=== PATIENT | female | born 1980 | race Caucasian/White ===

== ENCOUNTER 2019-02-02 20:40 | Emergency (ER) | payer SELFPAY ==
[2019-02-02 21:27] LABS: Urine Blood TRACE (NEG); Urine Glucose NEGATIVE (NEG); Urine Protein NEGATIVE (NEG); Urine Specific Gravity >1.030 (1.005-1.030)
[2019-02-02 21:58] LABS: Barbiturates NEGATIVE (NEGATIVE); Benzodiazepines NEGATIVE (NEGATIVE); Cocaine NEGATIVE (NEGATIVE); METHAMPHETAM NEGATIVE (NEGATIVE); Methadone NEGATIVE (NEGATIVE); Opiates NEGATIVE (NEGATIVE); Phencyclidine NEGATIVE (NEGATIVE); THC Cannibis NEGATIVE (NEGATIVE)
[2019-02-02 22:11] LABS: Basophils % 1.1 % (0-1.3); Hematocrit 39.2 % (36.0-45.0); Lymphocytes % 39.3 % (15.3-44.8); MPV 8.9 fL (7.6-11.3); RBC Red Blood Cell Count 4.44 M/uL (3.86-4.86)
[2019-02-02 22:54] LABS: Protime INR 1.14
[2019-02-02 23:14] LABS: ALT/SGPT 20 U/L (12-78); AST/SGOT 13 U/L (15-37); Albumin 3.6 g/dL (3.4-5.0); Alkaline Phosphatase 65 U/L (45-117); BUN Blood Urea Nitrogen 11 mg/dL (7-18); Bicarbonate 29 mmol/L (21-32); Bilirubin Direct 0.1 mg/dL (0-0.2); Bilirubin Total 0.4 mg/dL (0.2-1.0); Glucose Level 108 mg/dL (74-106); Protein, Total 6.7 g/dL (6.4-8.2); Sodium Level 142 mmol/L (136-145)
[2019-02-02 23:17] LABS: Potassium 2.9 mmol/L (3.5-5.1)
[2019-02-02] MEDS ORDERED: POTASSIUM CL SA 10 MEQ TAB PO ONE (23:28)
--- NOTE | 2019-02-03 01:38 | EDPHYS ---
Physician Documentation [facility] Name: Isabela Love Age: 38 yrs Sex: Female : 1980 Arrival Date: 02/02/2019 Time: 20:44 Bed 17 Private MD: ED Physician Donovan Bunn HPI: 02/02 21:11 This 38 yrs old Female presents to ER via Ambulatory with complaints of jmm Hearing Voices. 21:11 The patient presents to the emergency department with psychosis, has experienced jmm auditory hallucinations. Onset: The symptoms/episode began/occurred gradually, 3 month(s) ago. Past psychiatric history: Prior diagnosis: bipolar disorder. This is a 38 year old female with a history of depression, bipolar that presents to the ED with complaints of auditory hallucinations. Patient denies suicidal ideation or homicidal ideation. Patient states voices are telling her she is going to kill herself and hurt others. . 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 - Social history:: Smoking status: Patient uses tobacco products, smokes one pack cigarettes per day. Patient uses alcohol, occasionally. Patient/guardian denies using street drugs, IV drugs, last use of drugs 2 months ago- meth. - Ebola Screening: : No symptoms or risks identified at this time. ROS: 21:11 Constitutional: Negative for fever, chills, and weight loss, Cardiovascular: Negative jmm for chest pain, palpitations, and edema, Respiratory: Negative for shortness of breath, cough, wheezing, and pleuritic chest pain. 21:11 Psych: Positive for anxiety, auditory hallucinations. 21:11 All other systems are negative. Exam: 21:11 Constitutional: This is a well developed, well nourished patient who is awake, alert, jmm and in no acute distress. Head/Face: atraumatic. Eyes: EOMI, no conjunctival erythema appreciated ENT: Moist Mucus Membranes Neck: Trachea midline, Supple Chest/axilla: Normal chest wall appearance and motion. Cardiovascular: Regular rate and rhythm. No edema appreciated Respiratory: Normal respirations, no respiratory distress appreciated Abdomen/GI: Non distended, soft Back: Normal ROM Skin: General appearance color normal MS/ Extremity: Moves all extremities, no obvious deformities appreciated, no edema noted to the lower extremities 21:11 Psych: Behavior/mood is cooperative, anxious. Vital Signs: 20:52 BP 121 / 85; Pulse 87; Resp 18; Temp 97.7; Pulse Ox 100% on R/A; Weight 63.5 kg; Height mg2 5 ft. 2 in. (157.48 cm); Pain 0/10; 23:00 BP 104 / 67; Pulse 72; Resp 18; Temp 98.2; Pulse Ox 83% ; cm6 20:52 Body Mass Index 25.61 (63.50 kg, 157.48 cm) mg2 MDM: 21:12 Patient medically screened. [facility] 02/03 01:34 Data reviewed: vital signs, nurses notes. Counseling: I had a detailed discussion with [facility] the patient and/or guardian regarding: the historical points, exam findings, and any diagnostic results supporting the discharge/admit diagnosis, lab results, the need for outpatient follow up, to return to the emergency department if symptoms worsen or persist or if there are any questions or concerns that arise at home. ED course: Patient is a alert and non toxic in appearance in the ED. Psychiatric wire rope sales representative visited with the patient. Hallucinations appear to be predictive opposed to command. Patient agrees to follow up with [facility]. . 02/02 21:11 Order name: Acetaminophen; Complete Time: 23:19 [facility] 02/02 21:11 Order name: Basic Metabolic Panel; Complete Time: 23:19 [facility] 02/02 21:11 Order name: CBC with Diff; Complete Time: 23:19 [facility] 02/02 21:11 Order name: ETOH Level; Complete Time: 23:19 [facility] 02/02 21:11 Order name: Hepatic Function; Complete Time: 23:19 [facility] 02/02 21:11 Order name: PT-INR; Complete Time: 23:19 [facility] 02/02 21:11 Order name: Ptt, Activated; Complete Time: 23:19 [facility] 02/02 21:11 Order name: Salicylate; Complete Time: 23:26 [facility] 02/02 21:11 Order name: Urine Drug Screen; Complete Time: 22:05 [facility] 02/02 21:11 Order name: EKG; Complete Time: 21:12 [facility] 02/02 21:11 Order name: EKG - Nurse/Tech; Complete Time: 21:38 [facility] 02/02 21:24 Order name: Urine Dipstick--Ancillary (enter results); Complete Time: 21:39 [facility] 02/02 21:24 Order name: Urine --Ancillary (enter results); Complete Time: 21:39 [facility] 02/02 21:11 Order name: IV Saline Lock; Complete Time: 22:40 [facility] 02/02 21:11 Order name: Labs collected and sent; Complete Time: 22:40 [facility] 02/02 21:11 Order name: Urine Dipstick-Ancillary (obtain specimen); Complete Time: 21:38 [facility] Administered Medications: 02/02 23:20 Drug: Potassium Chloride 40 mEq Route: PO; cc3 23:34 Follow up: Response: No adverse reaction cc3 Disposition: 02/03 06:33 Co-signature as Attending Physician, Donovan Bunn MD Available for consultation at [facility] all times . Disposition: 02/03/19 01:37 Discharged to Home. Impression: Hallucinations, unspecified. - Condition is Stable. - Discharge Instructions: Schizophrenia. - Medication Reconciliation Form, Thank You Letter, Antibiotic Education, Prescription Opioid Use form. - Follow up: Private Physician; When: 2 - 3 days; Reason: Recheck today's complaints, Continuance of care, Re-evaluation by your physician. Signatures: Dispatcher [employer] EDMS Jamaal Alfonso PA PA jmm Singer, Phillip, MD MD ps1 Ttii Harrell RN RN mg2 Alyssia Salazar cc3 Corrections: (The following items were deleted from the chart) 01:54 01:37 02/03/2019 01:37 Discharged to Home. Impression: Hallucinations, unspecified. cc3 Condition is Stable. Forms are Medication Reconciliation Form, Thank You Letter, Antibiotic Education, Prescription Opioid Use. Follow up: Private Physician; When: 2 - 3 days; Reason: Recheck today's complaints, Continuance of care, Re-evaluation by your physician. [facility]
--- NOTE | 2019-02-03 01:38 | ER ---
Nurse's Notes [facility] Name: Isabela Love Age: 38 yrs Sex: Female : 1980 Arrival Date: 02/02/2019 Time: 20:44 Bed 17 Private MD: Diagnosis: Hallucinations, unspecified Presentation: 02/02 20:48 Presenting complaint: Patient states: ama been hearing voices calling me stupid and mg2 that i was trying to kill myself. i do have thoughts of killing myself now and i dont feel comfortable at home anymore. i live by myself. Transition of care: patient was not received from another setting of care. Onset of symptoms was February 02, 2019. Risk Assessment: Do you want to hurt yourself or someone else? Patient reports desire/thoughts of hurting themselves or someone else. Provider notified. Initial Sepsis Screen: Does the patient meet any 2 criteria? No. Patient's initial sepsis screen is negative. Does the patient have a suspected source of infection? No. Patient's initial sepsis screen is negative. Care prior to arrival: None. 20:48 Method Of Arrival: Ambulatory mg2 20:48 Acuity: TAMEKA 2 mg2 Triage Assessment: 21:02 General: Appears in no apparent distress. comfortable, Behavior is calm, cooperative, cc3 appropriate for age. 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 - Social history:: Smoking status: Patient uses tobacco products, smokes one pack cigarettes per day. Patient uses alcohol, occasionally. Patient/guardian denies using street drugs, IV drugs, last use of drugs 2 months ago- meth. - Ebola Screening: : No symptoms or risks identified at this time. Screenin:02 Abuse screen: Denies threats or abuse. Denies injuries from another. Nutritional cc3 screening: No deficits noted. Tuberculosis screening: No symptoms or risk factors identified. Fall Risk Ambulatory Aid- None/Bed Rest/Nurse Assist (0 pts). Gait- Normal/Bed Rest/Wheelchair (0 pts) Mental Status- Oriented to own ability (0 pts). Assessment: 21:02 General: Appears in no apparent distress. comfortable, Behavior is calm, cooperative, cc3 appropriate for age. Pain: Denies pain. Neuro: Level of Consciousness is awake, alert, obeys commands, Oriented to person, place, time, situation, Appropriate for age. Cardiovascular: Denies chest pain, Heart tones S1 S2 present Capillary refill < 3 seconds Patient's skin is warm and dry. Rhythm is sinus rhythm. Respiratory: Airway is patent Respiratory effort is even, unlabored, Respiratory pattern is regular, symmetrical, Breath sounds are clear bilaterally. GI: Abdomen is round non-distended. : No signs and/or symptoms were reported regarding the genitourinary system. EENT: No signs and/or symptoms were reported regarding the EENT system. Derm: Skin is intact, is healthy with good turgor, Skin is pink, warm \T\ dry. normal. Musculoskeletal: Circulation, motion, and sensation intact. Range of motion: intact in all extremities. 21:30 Reassessment: Patient's belongings taken by her sister. cc3 22:00 Reassessment: Patient appears in no apparent distress at this time. Patient and/or cc3 family updated on plan of care and expected duration. Pain level reassessed. Patient is alert, oriented x 3, equal unlabored respirations, skin warm/dry/pink. ED clerk Valdez said she received a call from laboratory and told her that all the lab works sent were hemolysed. Called lab at 1108 to do phlebotomy for repeat bloodworks and staff Melissa said she'll page someone to come over here and do it. Sitter present. 22:30 Reassessment: Called again laboratory at 1108 to follow up the flower shop laborer/designer because [facility] up to now she hasn't come yet and staff Melissa said she'll page her again. 22:40 Reassessment: CECILE Walls did phlebotomy for the patient and sent the blood samples to [facility] the laboratory. 23:16 Reassessment: Patient appears in no apparent distress at this time. Patient and/or cc3 family updated on plan of care and expected duration. Pain level reassessed. Patient is alert, oriented x 3, equal unlabored respirations, skin warm/dry/pink. Lab staff Melissa called and relayed critical potassium result of 2.9, PA Mickail informed. Sitter present. 02/03 00:20 Reassessment: Patient appears in no apparent distress at this time. Patient and/or cc3 family updated on plan of care and expected duration. Pain level reassessed. Patient is alert, oriented x 3, equal unlabored respirations, skin warm/dry/pink. sitter present. 01:00 Reassessment: Patient appears in no apparent distress at this time. Patient and/or cc3 family updated on plan of care and expected duration. Pain level reassessed. Patient is alert, oriented x 3, equal unlabored respirations, skin warm/dry/pink. [facility] union representative came at bedside. Sitter present. 01:20 Reassessment: [facility] union representative left the patient's room. cc3 01:45 Reassessment: Patient appears in no apparent distress at this time. Patient and/or cc3 family updated on plan of care and expected duration. Pain level reassessed. Patient is alert, oriented x 3, equal unlabored respirations, skin warm/dry/pink. GRICELDA Alfonso discharged the patient home, no prescription given. IV cannula removed and patient left ER vitally stable and ambulatory. No valuables left in the patient's room. Patient denies pain at this time. Patient states feeling better. Patient states symptoms have improved. Psych: 02/02 21:02 Subjective: Patient's mood is normal Delusions are denied, Hallucinations are auditory, cc3 Having thoughts of suicide. Denies suicidal plan. Objective: Patient is cooperative, Speech is normal, Affect is appropriate. Interventions: Removed personal items and placed in bag. Patient placed in hospital gown. Searched person for dangerous items. Urine collected and sent for urine drug test. Belonging list filled out. Suicide Risk Assessment: Sad Person Scale: Sex of patient: Female: Score 0 points. Age of patient: Score 0 point if patient falls outside of specified age parameters. Depression: Score 0 point if signs of depression are not present. Previous Attempt: Score 0 point if patient has not previously attempted suicide. Substance Abuse: Score 1 point if patient abuses alcohol or drugs. Rational Thinking: Score 0 point if patient has rational thinking. Social Support: Score 1 point if social support is lacking and/or unavailable. Organized Plan: Score 0 if patient did not have an organized plan in place. Relationship: Score 1 point if patient is , , , or for a single male Chronic Sickness: Score 0 point if patient does not have a chronic illness, debilitating, or severe disorder. TOTAL POINTS: If total points are 3-4, proposed clinical action is close follow-up/consider hospitalization. Safety Checks: Personal items have been removed. Door is open. No visitors are present at this time. sitter present. Patient uses methamphetamines Last use was 2 months ago. Commitment: Patient will be a voluntary commitment. Vital Signs: 20:52 BP 121 / 85; Pulse 87; Resp 18; Temp 97.7; Pulse Ox 100% on R/A; Weight 63.5 kg; Height mg2 5 ft. 2 in. (157.48 cm); Pain 0/10; 23:00 BP 104 / 67; Pulse 72; Resp 18; Temp 98.2; Pulse Ox 83% ; cm6 20:52 Body Mass Index 25.61 (63.50 kg, 157.48 cm) mg2 ED Course: 20:44 Patient arrived in ED. cf2 20:51 Triage completed. mg2 20:53 Arm band placed on. mg2 20:56 Jamaal Alfonso PA is PHCP. jmm 20:56 Donovan Bunn MD is Attending Physician. [facility] 21:00 Safety checks: Items removed: yes. Door open/sign placed on door: yes. Family/friend cm6 present: no. Sitter present: Yes. Safety checks:. 21:02 Alyssia Salazar is Primary Nurse. cc3 21:02 Patient has correct armband on for positive identification. Placed in gown. Bed in low cc3 position. Call light in reach. sitter present. 21:15 Safety checks: Items removed: yes. Door open/sign placed on door: yes. Family/friend cm6 present: no. Sitter present: Yes. 21:30 Safety checks: Items removed: yes. Door open/sign placed on door: yes. Family/friend cm6 present: no. Sitter present: Yes. 21:40 Inserted saline lock: 20 gauge in right antecubital area, using aseptic technique. cc3 Blood collected. inserted by dialysis tech Natalie. 21:45 Safety checks: Items removed: yes. Door open/sign placed on door: yes. Family/friend cm6 present: no. Sitter present: Yes. 22:00 Safety checks: Items removed: yes. Door open/sign placed on door: yes. Family/friend cm6 present: no. Sitter present: Yes. 22:15 Safety checks: Items removed: yes. Door open/sign placed on door: yes. Family/friend cm6 present: no. Sitter present: Yes. 22:30 Safety checks: Items removed: yes. Door open/sign placed on door: yes. Family/friend cm6 present: no. Sitter present: Yes. 22:40 Lab(s) recollected, by me, sent to lab. mg2 22:45 Safety checks: Items removed: yes. Door open/sign placed on door: yes. Family/friend cm6 present: no. Sitter present: Yes. 23:00 Safety checks: Items removed: yes. Door open/sign placed on door: yes. Family/friend cm6 present: no. Sitter present: Yes. 23:15 Safety checks: Items removed: yes. Door open/sign placed on door: yes. Family/friend cm6 present: no. Sitter present: Yes. 23:23 Called [facility] spoke to Chase about having a screener speak to pt. mw2 23:30 Safety checks: Items removed: yes. Door open/sign placed on door: yes. Family/friend cm6 present: no. Sitter present: Yes. 23:45 Safety checks: Items removed: yes. Door open/sign placed on door: yes. Family/friend cm6 present: no. Sitter present: Yes. 02/03 00:00 Safety checks: Items removed: yes. Door open/sign placed on door: yes. Family/friend cm6 present: no. Sitter present: Yes. 00:15 Safety checks: Items removed: yes. Door open/sign placed on door: yes. Family/friend cm6 present: no. Sitter present: Yes. 00:30 Safety checks: Items removed: yes. Door open/sign placed on door: yes. Family/friend cm6 present: no. Sitter present: Yes. 00:45 Safety checks: Items removed: yes. Door open/sign placed on door: yes. Family/friend cm6 present: no. Sitter present: Yes. 01:45 No provider procedures requiring assistance completed. IV discontinued, intact, cc3 bleeding controlled, No redness/swelling at site. Pressure dressing applied. Administered Medications: 02/02 23:20 Drug: Potassium Chloride 40 mEq Route: PO; cc3 23:34 Follow up: Response: No adverse reaction cc3 Outcome: 02/03 01:37 Discharge ordered by . elba 01:45 Discharged to home ambulatory. cc3 01:45 Condition: stable 01:45 Discharge instructions given to patient, Instructed on discharge instructions, follow up and referral plans. Demonstrated understanding of instructions, follow-up care. 01:54 Patient left the ED. cc3 Signatures: Jamaal Alfonso PA PA jmm [place], MyKena mw2 Titi Harrell RN RN mg2 Alyssia Salazar cc3 Natalie Mae cm6 Colby Bob cf2 Corrections: (The following items were deleted from the chart) 02:35 02/02 22:00 Reassessment: Patient appears in no apparent distress at this time. Patient cc3 and/or family updated on plan of care and expected duration. Pain level reassessed. Patient is alert, oriented x 3, equal unlabored respirations, skin warm/dry/pink. ED courtroom clerk Kenlazaro said she received a call from laboratory and told her that all the lab works sent were hemolysed. Called lab at 1108 to do phlebotomy for repeat bloodworks and staff Melissa said she'll page someone to come over here and do it. cc3 02/03 02:35 02/02 23:16 Reassessment: Patient appears in no apparent distress at this time. Patient cc3 and/or family updated on plan of care and expected duration. Pain level reassessed. Patient is alert, oriented x 3, equal unlabored respirations, skin warm/dry/pink. Lab staff Melissa called and relayed critical potassium result of 2.9, GRICELDA Alfonso informed. cc3 02/03 02:36 01:00 Reassessment: Patient appears in no apparent distress at this time. Patient cc3 and/or family updated on plan of care and expected duration. Pain level reassessed. Patient is alert, oriented x 3, equal unlabored respirations, skin warm/dry/pink. [facility] union representative came at bedside. cc3
[2019-02-03 02:35] VITALS: BP 104/67; TEMP 98.2; O2SAT 83
--- NOTE | 2019-02-03 06:11 | EKG ---
Test Date: 2019-02-02 Test Time: 21:15:46 Design Leader: HOLA MEASUREMENT RESULTS: Intervals: Rate: 80 [place]: 170 QRSD: 98 QT: 364 QTc: 419 [place]: P: [place]: 170 QRS: 147 T: 127 INTERPRETIVE STATEMENTS: Normal sinus rhythm with sinus arrhythmia Right axis deviation Incomplete right bundle branch block Nonspecific T wave abnormality Abnormal ECG No previous ECG available for comparison Electronically Signed On 02-03-19 06:10:40 CDT by Chase Ivey
== END 2019-02-03 01:54 | disposition home or self-care (01) ==
LOC: ER 20:40
DX: R44.3 Hallucinations, unspecified (principal)
CPT/HCPCS: 36415; 80048; 80076; 80307; 80320; 80329; 81003; 81025; 85025; 85610; 85730; 93005; 99285

== ENCOUNTER 2023-10-09 07:14 | Emergency (ER) | payer SELFPAY ==
[2023-10-09] MEDS ORDERED: GABAPENTIN 300 MG CAP ONE (07:44)
--- NOTE | 2023-10-09 07:46 | EDPHYS ---
Physician Documentation [facility] Name: Isabela Love Age: 43 yrs Sex: Female : 1980 Arrival Date: 10/09/2023 Time: 07:14 Bed 5 Private MD: LY Physician John Borjas HPI: 10/08 07:41 This 43 yrs old Female presents to ER via Ambulatory with complaints of chris Insect Bite - Spider bite, Fever. 07:41 This 43 yrs old Female presents to ER via Ambulatory with complaints of Insect Bite - chris Spider bite, Fever. 07:41 The patient reports fever, not measured (subjective). Onset: The symptoms/episode chris began/occurred 2 day(s) ago. Onset: The symptoms/episode began/occurred 1 week(s) ago. Modifying factors: there are no obvious modifying factors. Associated signs and symptoms: Pertinent positives: skin rash. Severity of symptoms: At their worst the symptoms were mild in the emergency department the symptoms are unchanged. The patient has not experienced similar symptoms in the past. 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 - Infectious Disease History:: Denies. - Social history:: Smoking status: Reported history of juuling and/or vaping. - Family history:: not pertinent. ROS: 07:41 Constitutional: Negative for fever, chills, and weight loss, Eyes: Negative for injury, chris pain, redness, and discharge, ENT: Negative for injury, pain, and discharge, Neck: Negative for injury, pain, and swelling, Cardiovascular: Negative for chest pain, palpitations, and edema, Respiratory: Negative for shortness of breath, cough, wheezing, and pleuritic chest pain, Abdomen/GI: Negative for abdominal pain, nausea, vomiting, diarrhea, and constipation, Back: Negative for injury and pain, : Negative for injury, bleeding, discharge, and swelling, MS/Extremity: Negative for injury and deformity, Neuro: Negative for headache, weakness, numbness, tingling, and seizure, Psych: Negative for depression, anxiety, suicide ideation, homicidal ideation, and hallucinations, Allergy/Immunology: Negative for hives, rash, and allergies, Endocrine: Negative for neck swelling, polydipsia, polyuria, polyphagia, and marked weight changes, Hematologic/Lymphatic: Negative for swollen nodes, abnormal bleeding, and unusual bruising, 07:41 Skin: Positive for rash, Exam: 07:41 Constitutional: This is a well developed, well nourished patient who is awake, alert, chris and in no acute distress. Head/Face: Normocephalic, atraumatic. Eyes: Pupils equal round and reactive to light, extra-ocular motions intact. Lids and lashes normal. Conjunctiva and sclera are non-icteric and not injected. Cornea within normal limits. Periorbital areas with no swelling, redness, or edema. ENT: Nares patent. No nasal discharge, no septal abnormalities noted. Tympanic membranes are normal and external auditory canals are clear. Oropharynx with no redness, swelling, or masses, exudates, or evidence of obstruction, uvula midline. Mucous membranes moist. Neck: Trachea midline, no thyromegaly or masses palpated, and no cervical lymphadenopathy. Supple, full range of motion without nuchal rigidity, or vertebral point tenderness. No Meningismus. Chest/axilla: Normal chest wall appearance and motion. Nontender with no deformity. No lesions are appreciated. Cardiovascular: Regular rate and rhythm with a normal S1 and S2. No gallops, murmurs, or rubs. Normal PMI, no JVD. No pulse deficits. Respiratory: Lungs have equal breath sounds bilaterally, clear to auscultation and percussion. No rales, rhonchi or wheezes noted. No increased work of breathing, no retractions or nasal flaring. Abdomen/GI: Soft, non-tender, with normal bowel sounds. No distension or tympany. No guarding or rebound. No evidence of tenderness throughout. Back: No spinal tenderness. No costovertebral tenderness. Full range of motion. MS/ Extremity: Pulses equal, no cyanosis. Neurovascular intact. Full, normal range of motion. Neuro: Awake and alert, GCS 15, oriented to person, place, time, and situation. Cranial nerves II-XII grossly intact. Motor strength 5/5 in all extremities. Sensory grossly intact. Cerebellar exam normal. Normal gait. Psych: Awake, alert, with orientation to person, place and time. Behavior, mood, and affect are within normal limits. 07:41 Skin: abscess, not appreciated, cellulitis, is not appreciated, induration, that is mild is noted, injury, is not appreciated, lesion(s), vesicle(s) noted, rash a mild rash is noted, rash can be described as erythematous, vesicular, Turgor: is excellent, Vital Signs: 07:30 BP 115 / 75; Pulse 90; Resp 17; Temp 98.5; Pulse Ox 100% ; Weight 90.72 kg; Height 5 ap3 ft. 3 in. ; 07:58 BP 110 / 76; Pulse 86; Resp 16; Pulse Ox 99% ; ko1 07:30 Body Mass Index 35.43 (90.72 kg, 160.02 cm) ap3 MDM: 07:19 Patient medically screened. [facility] 07:44 Differential diagnosis: viral Infection, bacterial infection, URI, UTI. Data reviewed: [facility] vital signs, nurses notes. Consideration of Admission/Observation Escalation of care including admission/observation considered. I considered the following discharge prescriptions or medication management in the emergency department Medications were administered in the Emergency Department. See MAR. Test considered but Not performed: Labs: no labs. Care significantly affected by the following chronic conditions: depression. Administered Medications: 07:47 Drug: Gabapentin PO 300 mg PO once Route: PO; ko1 08:00 Follow up: Response: No adverse reaction ko1 07:57 Drug: Valtrex PO 1000 mg PO once Route: PO; ko1 08:00 Follow up: Response: No adverse reaction ko1 Disposition Summary: 10/09/23 07:46 Discharge Ordered Notes: Location: Home [facility] Problem: new [facility] Symptoms: have improved chris Condition: Stable chris Diagnosis - Zoster without complications chris Followup: chris - With: Private Physician - When: 2 - 3 days - Reason: Recheck today's complaints, Re-evaluation by your physician Followup: chris - With: Juan Silva MD - When: 5 - 6 days - Reason: Recheck today's complaints, Re-evaluation by your physician Discharge Instructions: - Discharge Summary Sheet chris - Shingles chris - Shingles, [id number] chris Forms: - Medication Reconciliation Form chris - Antibiotic Education chris - Prescription Opioid Use chris - Patient Portal Instructions [facility] - Leadership Thank You Letter chris Prescriptions: - Valtrex 1 gram Oral tablet - take 1 tablet ORAL route 3 times per day; 21 tablet; Refills: 0, Product chris Selection Permitted - gabapentin 300 mg Oral capsule - take 1 capsule ORAL route every 12 hours; 40 capsule; Refills: 0, Product [facility] Selection Permitted Signatures: John Borjas MD MD cha Prokisch, Amanda RN RN ap3 Roxana Nj RN RN ko1 Corrections: (The following items were deleted from the chart) 07:32 07:32 Social history: Smoking status: Patient denies any tobacco usage or history of. ap3 ap3
--- NOTE | 2023-10-09 07:46 | ER ---
Nurse's Notes [facility] Name: Isabela Love Age: 43 yrs Sex: Female : 1980 Arrival Date: 10/09/2023 Time: 07:14 Bed 5 Private MD: Diagnosis: Zoster without complications Presentation: 10/08 07:30 Chief complaint: Patient states: she has multiple wound areas that she believes to have ap3 been from a spider on her lower back and left leg. patient reports her muscles in the bitten area have become sore. Coronavirus screen: At this time, the client does not indicate any symptoms associated with coronavirus-19. Ebola Screen: No symptoms or risks identified at this time. Initial Sepsis Screen: Does the patient meet any 2 criteria? HR > 90 bpm. No. Patient's initial sepsis screen is negative. Does the patient have a suspected source of infection? No. Patient's initial sepsis screen is negative. Risk Assessment: Do you want to hurt yourself or someone else? Patient reports no desire to harm self or others. Onset of symptoms is unknown. 07:30 Method Of Arrival: Ambulatory ap3 07:30 Acuity: TAMEKA 4 ap3 Triage Assessment: 07:32 General: Appears in no apparent distress. Behavior is calm, cooperative, appropriate ap3 for age. Pain: Denies pain. Neuro: Level of Consciousness is awake, alert, obeys commands, Oriented to person, place, time, situation. Cardiovascular: Patient's skin is warm and dry. Respiratory: Airway is patent Respiratory effort is even, unlabored, Respiratory pattern is regular, symmetrical. Derm: Reports insect bite wounds. 07:59 Bite description: bite sustained to left low back by an unknown animal, animal ko1 information: vaccination(s) is not applicable. 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 - Infectious Disease History:: Denies. - Social history:: Smoking status: Reported history of juuling and/or vaping. - Family history:: not pertinent. Screenin:33 Abuse screen: Denies threats or abuse. Nutritional screening: No deficits noted. ap3 Tuberculosis screening: No symptoms or risk factors identified. 07:50 [facility] ED Fall Risk Assessment (Adult) History of falling in the last 3 months, ko1 including since admission No falls in past 3 months (0 pts) Confusion or Disorientation No (0 pts) Intoxicated or Sedated No (0 pts) Impaired Gait No (0 pts) Mobility Assist Device Used No (0 pt) Altered Elimination No (0 pt) Score/Fall Risk Level 0 - 2 = Low Risk Oriented to surroundings, Maintained a safe environment, Educated pt \T\ family on fall prevention, incl call for assistance when getting out of bed, Assessed \T\ reinforced patient's understanding of fall precautions, Provided non-skid footwear, Hourly rounding (assess needs \T\ fall precautionary measures) done. Assessment: 07:45 General: Appears in no apparent distress. Behavior is calm, cooperative, appropriate ko1 for age. 07:48 Reassessment: awaiting valtrex from pharmacy. ko1 07:50 Pain: Complains of pain in lower back and legs. Neuro: No deficits noted. ko1 Cardiovascular: No deficits noted. Respiratory: No deficits noted. GI: No deficits noted. : No deficits noted. EENT: No deficits noted. Derm: Skin is intact, Skin is pink, warm \T\ dry. Rash noted that is red. Musculoskeletal: No deficits noted. Vital Signs: 07:30 BP 115 / 75; Pulse 90; Resp 17; Temp 98.5; Pulse Ox 100% ; Weight 90.72 kg; Height 5 ap3 ft. 3 in. ; 07:58 BP 110 / 76; Pulse 86; Resp 16; Pulse Ox 99% ; ko1 07:30 Body Mass Index 35.43 (90.72 kg, 160.02 cm) ap3 ED Course: 07:16 Patient arrived in ED. im 07:18 John Borjas MD is Attending Physician. chris 07:32 Triage completed. ap3 07:33 Arm band placed on left wrist. ap3 07:33 Patient has correct armband on for positive identification. Placed in gown. Bed in low ap3 position. Call light in reach. Pulse ox on. NIBP on. 07:42 Roxana Nj, CECILE is Primary Nurse. ko1 07:46 Juan Silva MD is Referral Physician. [facility] 07:50 Provided Education on: meds. Door closed. Noise minimized. ko1 07:50 No provider procedures requiring assistance completed. Patient did not have IV access ko1 during this emergency room visit. Administered Medications: 07:47 Drug: Gabapentin PO 300 mg PO once Route: PO; ko1 08:00 Follow up: Response: No adverse reaction ko1 07:57 Drug: Valtrex PO 1000 mg PO once Route: PO; ko1 08:00 Follow up: Response: No adverse reaction ko1 Medication: 07:50 VIS not applicable for this client. ko1 Outcome: 07:46 Discharge ordered by MD. [facility] 07:58 Discharged to home ambulatory, ko1 07:58 Condition: stable 07:58 Discharge instructions given to patient, Instructed on discharge instructions, follow up and referral plans. medication usage, Demonstrated understanding of instructions, follow-up care, medications, Prescriptions given X 2, 08:01 Patient left the ED. ko1 Signatures: John Borjas MD MD cha Prokisch, Amanda RN RN [facility] Roxana Nj, RN RN ko1 Maryuri Almendarez Corrections: (The following items were deleted from the chart) 07:32 07:32 Social history: Smoking status: Patient denies any tobacco usage or history of. haley 3 07:51 07:48 Reassessment: awaiting valtrex from pharmacy ko1 ko1
[2023-10-09] MEDS ORDERED: VALACYCLOVIR 500 MG TAB ONE (07:53)
[2023-10-09] MEDS ORDERED: VALACYCLOVIR 500 MG TAB PO SCH (08:00)
[2023-10-09 08:05] VITALS: TEMP 98.5
[2023-10-09 08:26] VITALS: BP 110/76; O2SAT 99
== END 2023-10-09 08:01 | disposition home or self-care (01) ==
LOC: ER 07:14
DX: B02.9 Zoster without complications (principal)
CPT/HCPCS: 99283

== ENCOUNTER 2023-12-13 10:48 | Emergency (ER) | payer SELFPAY ==
--- OUTSIDE RECORDS SUMMARY | 2023-12-13 10:51 | XMS REPORT | Continuity of Care Document ---
Author Name Unknown Address [address] [facility] [address] [place] [address] [facility] thconnect Address [address] [facility] [facility] [address] [place] [address] Care Team Providers Care Shoe Worker Name Role Phone Brigid Culp Primary Care Physician [phone] Sushila Waggoner LMSW Attending Clinician [phone] BRIGID WASHINGTON Attending Clinician Unavailable Brigid Culp Attending Clinician [phone] BETI SANDOVAL Attending Clinician Hemal Singh MD Attending Clinician [phone] Doctor Unassigned, [place] Attending Clinician U Nicki Webster DO Attending Clinician Payers Payer Name Policy Type Policy Number Effective Date Expirati on Date Source Problems Condition Name Condition Details Condition Category Status Onset Date Resolution Date Last Treatment Date Treating Clinician Comments Source PTSD (post-trau matic stress disorder) PTSD (post-trau matic stress disorder) Disease Active 09-21 00:00: 00 [facility] Impaired fasting glucose Impaired fasting glucose Disease Active 07-26 00:00: 00 [facility] Vitamin D deficiency Vitamin D deficiency Disease Active 07-26 00:00: 00 [facility] Positive serology for syphilis Positive serology for syphilis Disease Active 07-26 00:00: 00 [facility] B12 deficiency B12 deficiency Disease Active 07-26 00:00: 00 [facility] Hyperchole sterolemia Hyperchole sterolemia Disease Active 07-26 00:00: 00 [facility] Tobacco abuse Tobacco abuse Disease Active 07-10 00:00: 00 [facility] Right carpal tunnel syndrome Right carpal tunnel syndrome Disease Active 07-10 00:00: 00 [facility] Bipolar disorder Bipolar disorder Disease Active 07-07 00:00: 00 [facility] Generalize d anxiety disorder Generalize d anxiety disorder Disease Active 07-29 00:00: 00 [facility] Allergies, Adverse Reactions, Alerts Allergy Name Allergy Type Status Severity Reaction(s) Onset Date Inactive Date Treating Clinician Comments Source NO KNOWN ALLERGIE S Drug Class Active [facility] Social History Social Habit Start Date Stop Date Quantity Comments Source History of tobacco use Cigarette Smoker [facility] Cigarettes smoked current (pack per day) - Reported 2022-06-14 00:00:00 2022-06-14 00:00:00 [facility] Cigarette pack-years 2022-06-14 00:00:00 2022-06-14 00:00:00 [facility] Alcohol intake 2022-06-14 00:00:00 2022-06-14 00:00:00 Current non-drinker of alcohol (finding) [facility] Tobacco use and exposure 2022-06-14 00:00:00 2022-06-14 00:00:00 Smokeless tobacco non-user [facility] Exposure to SARS-CoV-2 (event) 2022-06-03 00:00:00 2022-06-13 08:03:00 Not sure [facility] Sex Assigned At 1980 00:00:00 1980 00:00:00 [facility] Smoking Status Start Date Stop Date Source Ex-smoker 2022-06-14 00:00:00 [facility]22-06[facility]14 [facility] [facility] Current [facility] day [facility]oker 2018-12-27 00:00:00 [facility] Medications Ordered Medication Name Filled Medication Name Start Date Stop Date Current Medication? Ordering Clinician Indication Dosage Frequency Signature (SIG) Comments Components Source levoFLOXaci n (LEVAQUIN) tablet 750 mg 12-28 03:45: 00 12-28 02:54 :00 No 750mg 750 mg, Oral, ONCE NOW, 1 dose, Sun12/27/18 at 2245, RENETTA
Re ason for Anti-Infec tive: Documented Infection< br>Documen danilo Infection Site: Urine
D uration of Therapy: Other (see Comments) [facility] levoFLOXaci n (LEVAQUIN) 750 mg tablet 12-28 00:00: 00 01-02 04:59 :00 No [id number] 750mg Take 1 tablet by mouth every 24 (twenty-fo ur) hours for 4 days. [facility] CHANTIX 1 mg tablet 12-25 00:00: 00 06-14 00:00 :00 No TAKE 1 TABLET BY MOUTH 2 (TWO) TIMES DAILY. [facility] benzonatate 200 mg capsule 12-18 00:00: 00 06-14 00:00 :00 No [id number] 200mg Take 1 capsule by mouth 3 (three) times daily as needed for Cough. [facility] fluticasone 50 mcg/actuati on nasal spray 12-18 00:00: 00 06-14 00:00 :00 No [id number] 2{spray } Use 2 Sprays in each nostril daily. [facility] Vital Signs Vital Name Observation Time Observation Value Comments S prachi Systolic blood pressure 2022-06-14 14:14:00 125 mm[Hg] [facility] Diastolic blood pressure 2022-06-14 14:14:00 80 mm[Hg] [facility] Heart rate 2022-06-14 14:14:00 88 /min [facility] Body height 2022-06-14 14:14:00 157.5 cm [facility] Body weight 2022-06-14 14:14:00 87.091 kg [facility] BMI 2022-06-14 14:14:00 35.12 kg/m2 [facility] Oxygen saturation in Arterial blood by Pulse oximetry 2022-06-14 14:14:00 96 /min [facility] Systolic blood pressure 2019-01-10 16:15:00 103 mm[Hg] [facility] Diastolic blood pressure 2019-01-10 16:15:00 73 mm[Hg] [facility] Heart rate 2019-01-10 16:15:00 73 /min Unive [facility] Respiratory rate 2019-01-10 16:15:00 18 /min [facility] Oxygen saturation in Arterial blood by Pulse oximetry 2019-01-10 16:15:00 97 /min [facility] Body temperature 2019-01-10 14:38:00 37 Sakshi [facility] Body weight 2019-01-10 14:38:00 61.236 kg [facility] BMI 2019-01-10 14:38:00 24.69 kg/m2 [facility] Systolic blood pressure 2018-12-28 02:30:00 101 mm[Hg] [facility] Diastolic blood pressure 2018-12-28 02:30:00 63 mm[Hg] [facility] Heart rate 2018-12-28 02:30:00 92 /min [facility] Respiratory rate 2018-12-28 02:30:00 18 /min [facility] Body temperature 2018-12-28 02:14:00 36.72 Sakshi [facility] Body height 2018-12-28 02:14:00 157.5 cm [facility] Body weight 2018-12-28 02:14:00 61.236 kg [facility] BMI 2018-12-28 02:14:00 24.69 kg/m2 [facility] Oxygen saturation in Arterial blood by Pulse oximetry 2018-12-28 02:14:00 100 /min [facility] Procedures Procedure Date / Time Performed Performing Clinicia n Source URINALYSIS 2019-01-10 16:04:00 [facility] POCT TEST 2019-01-10 16:04:00 Jean Eden [facility] ADC / LCC - DRUG SCREEN TRIAGE 2019-01-10 16:04:00 Hemal [place] [facility] NOTICE OF PRIVACY PRACTICES 2019-01-10 13:54:11 Doctor Unassigned, [place] [facility] CONSENT/REFUSAL FOR DIAGNOSIS AND TREATMENT 2019-01-10 13:54:00 Doctor Unassigned, [place] [facility] POCT TEST 2018-12-28 02:28:00 Desiree Sandoval ra [facility] URINALYSIS 2018-12-28 02:19:[address] [facility] PRIVACY PRACTICES 2018-12-28 02:03:56 Doctor Unassigned, [place] [facility] Encounters Start Date/Time End Date/Time Encounter Type Admission Type Attending [facility] Emergency [facility] Facility Care Department Encounter ID Source 2022-06-27 14:33:45 2022-06-27 14:33:45 Outpatient SFA [id number] [id number] Refugio Ortega 2022-06-15 00:00:00 2022-06-15 00:00:00 Patient Outreach Sushila Waggoner [facility] [id number] [facility] 2022-06-14 08:00:00 2022-06-14 09:31:17 Outpatient BRIGID SIDDIQUI [facility] [id number] [facility] 2022-06-14 08:00:00 2022-06-14 09:31:17 Office Visit Brigid [place] [facility] [id number] [facility] 2021-04-25 08:00:00 2021-04-25 08:00:00 Outpatient BETI COBB [facility] [id number] [facility] 2019-01-10 09:51:04 2019-01-10 13:03:00 Emergency Hemal Eden [facility] [id number] [facility] 2019-01-10 00:00:00 2019-01-10 00:00:00 Orders Only Doctor Unassigned, [place] [facility] [id number] [id number] [facility] 2018-12-27 21:22:53 2018-12-27 22:00:00 Emergency Nicki Sandoval [facility] [id number] [facility] Results Test Description Test Time Test Comments Results Result Co mments Source [facility] 16:45:00* Test Item Value Reference Range Interpretation Comme nts APPEARANCE (test code = 1855993004) Slightly Cloudy Clear A COLOR (test code = 1879685498) Colorless Yellow A PH (test code = 3015785358) 4.8-8.0 SP GRAVITY (test code = 6344341703) 1.003-1.030 GLU U QUAL (test code = 4402456495) Negative Negative BLOOD (test code = 5621216412) Trace Negative A KETONES (test code = 3967663659) Negative Negative PROTEIN (test code = 2887-8) Negative Negative UROBILIN (test code = 3937789930) 0.2 mg/dL See_Comment [Automated message] The system which generated this result transmitted reference range: 0-1.0 mg/dL. The reference range was not used to interpret this result as normal/abnormal. BILIRUBIN (test code = 3239331733) Negative Negative NITRITE (test code = 2767031293) Negative Negative LEUK BAKARI (test code = 1054920012) Large Negative A RBC/HPF (test code = 0488989434) See_Comment H [Automated message] The system which generated this result transmitted reference range: 0 - 3 HPF. The reference range was not used to interpret this result as normal/abnormal. WBC/HPF (test code = 5938998841) >182 See_Comment H [Automated message] The system which generated this result transmitted reference range: 0 - 5 HPF. The reference range was not used to interpret this result as normal/abnormal. BACTERIA (test code = 3808430576) Moderate Negative A SQ EPITH (test code = 0306570574) HPF YEAST BUD (test code = 5522574101) See_Comment H [Automated message] The system which generated this result transmitted reference range: <=1 HPF. The reference range was not used to interpret this result as normal/abnormal. TRICHOMONA (test code = 6801942827) See_Comment H [Automated message] The system which generated this result transmitted reference range: <=1 HPF. The reference range was not used to interpret this result as normal/abnormal. Lab Interpretation (test code = 70278-0) Abnormal [facility] [id number] 16:04:00* Test Item Value Reference Range Interpretation Comme nts POCT PREG (test code = 1605) negative On board controls acceptable with C Line (test code = 3574) present POCT PREG LOT # (test code = 3575) [id number] POCT PREG TEST DATE ( test code = 3576) 05/06/2020 Lab Interpretation (test cod e = 48054-2) Normal [facility]-24 02:36:00* Test Item Value Reference Range Interpretation Comme nts APPEARANCE (test code = 0690228774) Clear Clear COLOR (test code = 5865147294) Yellow Yellow PH (test code = 5672279812) 4.8-8.0 SP GRAVITY (test code = 4574535180) 1.003-1.030 GLU U QUAL (test code = 0453805832) Negative Negative BLOOD (test code = 3168088258) Trace Negative A KETONES (test code = 9309793361) Negative Negative PROTEIN (test code = 2887-8) Negative Negative UROBILIN (test code = 1958794095) 0.2 mg/dL See_Comment [Automated messa ge] The system which generated this result transmitted reference range: 0-1.0 mg/dL. The reference range was not used to interpret this result as normal/abnormal. BILIRUBIN (test code = 3818906695) Negative Negative NITRITE (test code = 5152577901) Negative Negative LEUK BAKARI (test code = 4167487034) Moderate Negative A RBC/HPF (test code = 3444711181) See_Comment [Automated messa ge] The system which generated this result transmitted reference range: 0 - 3 HPF. The reference range was not used to interpret this result as normal/abnormal. WBC/HPF (test code = 9710321326) See_Comment H [Automated messa ge] The system which generated this result transmitted reference range: 0 - 5 HPF. The reference range was not used to interpret this result as normal/abnormal. BACTERIA (test code = 2716811230) Few Negative A TRICHOMONA (test code = 8782152443) See_Comment H [Automated messa ge] The system which generated this result transmitted reference range: <=1 HPF. The reference range was not used to interpret this result as normal/abnormal. Lab Interpretation (test code = 32322-4) Abnormal [facility], [id number] 02:28:00 * Test Item Value Reference Range Interpretation Comme nts POCT PREG (test code = 1605) negative On board controls acceptable with C Line (test code = 3574) yes POCT PREG LOT # (test code = 3575) [id number] POCT PREG TEST DATE ( test code = 3576) 05/06/2020 Lab Interpretation (test cod e = 14731-6) Normal [facility]
[2023-12-13] MEDS ORDERED: NA CHLORIDE 0.9% 1,000 ML ONE (12:44)
[2023-12-13 13:14] LABS: Absolute Basophils 0.1 K/uL (0-0.5); Absolute Eosinophils 0.1 K/uL (0-0.5); Absolute Monocytes 0.7 K/uL (0.1-1.3); Absolute Neutrophil 5.1 K/uL (1.8-8.0); Basophils % 0.9 % (0-1.3); Eosinophils % 1.2 % (0-4.4); Hematocrit 38.7 % (36.0-45.0); Hemoglobin 13.2 g/dL (12.0-15.0); Lymphocytes % 24.9 % (15.3-44.8); MCH 29.7 pg (27.0-35.0); MCHC 34.2 g/dL (32.0-36.0); MCV 86.8 fL (80-100); MPV 7.9 fL (7.6-11.3); Monocytes % 8.4 % (3.3-12.3); Neutrophils % 64.6 % (41.7-73.7); Nucleated Red Blood Cells % 0.1 % (0-0); Platelets 235 thou/uL (152-406); RBC Red Blood Cell Count 4.46 M/uL (3.86-4.86); Red Cell Distribution Width 13.3 % (12.1-15.2)
[2023-12-13 13:32] LABS: Albumin 3.4 g/dL (3.4-5.0); Anion Gap 8.8 mEq/L (5.0-15.0); Bilirubin Total 0.5 mg/dL (0.2-1.0); Globulin 3.4 g/dL (2.3-3.5); Potassium 3.8 mEq/L (3.5-5.1); Protein, Total 6.8 g/dL (6.4-8.2)
[2023-12-13 14:19] LABS: Specific Gravity 1.015 (1.005-1.030)
[2023-12-13 14:21] LABS: Specific Gravity 1.015 (1.005-1.030); Sqamous Epithelial <5 /HPF (None Seen); Urine Bacteria <20 /HPF (<20); Urine Bilirubin NEGATIVE (Negative); Urine Blood Negative (Negative); Urine Clarity Extremely Turbid (Clear); Urine Color Light-Yellow (Yellow); Urine Culture Reflex Order NOT NEEDED; Urine Glucose NEGATIVE (Negative); Urine Ketones NEGATIVE (Negative); Urine Microscopic Reflex YN ORDER UMIC; Urine Mucus Slight /HPF (None Seen); Urine Nitrite NEGATIVE (Negative); Urine Protein NEGATIVE (Negative); Urine Urobilinogen Normal (Normal); Urine WBC <5 /HPF (<5); Urine pH 5.5 (5.0-7.0)
--- NOTE | 2023-12-13 15:05 | RAD REPORT ---
EXAM DESCRIPTION: CTAbdomen Pelvis W Contrast - 12/13/2023 2:35 pm CLINICAL HISTORY: Abdominal pain. left lower back pain, constipation;Abd pain COMPARISON: <Comparisons> TECHNIQUE: Biphasic CT imaging of the abdomen and pelvis was performed with 100 ml non-ionic IV cont rast. All CT scans are performed using dose optimization technique as appropriate and may include automated exposure control or mA/KV adjustment according to patient size. FINDINGS: The lung bases are clear. The liver demonstrates fatty infiltration. Cholecystectomy with mild prominence of the common duct me asuring 10 mm. Spleen, pancreas, adrenal glands and kidneys are within normal limits. No bowel obstruction, free air, free fluid or abscess. The appendix is normal. No evidence of signi ficant lymphadenopathy. No suspicious bony findings. IMPRESSION: No acute intra-abdominal or pelvic finding. Mild fatty liver. Cholecystectomy. Common duct is mildly prominent, nonemergent MRCP may be useful further evaluation.
[2023-12-13] MEDS ORDERED: ONDANSETRON 4 MG/2 ML VIAL ONE (16:10)
[2023-12-13] MEDS ORDERED: MORPHINE 4 MG/ML SYR ONE (16:11)
[2023-12-13] MEDS ORDERED: DIPHENHYDRAMINE 50 MG/ML VIAL ONE (16:19)
--- NOTE | 2023-12-13 16:44 | ER ---
Nurse's Notes [facility] Name: Isabela Love Age: 43 yrs Sex: Female : 1980 Arrival Date: 12/13/2023 Time: 10:48 Bed 13 Private MD: Diagnosis: Low back pain Presentation: 12/12 11:06 Chief complaint: Patient states: she has been having low back pain for approx one week. ap3 patient reports the pain now feels like "I'm fixing to poop out a kid". patient reports constipation. patient states she has been taking advil and tylenol with no relief. patient currently rates her pain as a 10/10 on the pain scale. Coronavirus screen: At this time, the client does not indicate any symptoms associated with coronavirus-19. Ebola Screen: No symptoms or risks identified at this time. Initial Sepsis Screen: Does the patient meet any 2 criteria? No. Patient's initial sepsis screen is negative. Does the patient have a suspected source of infection? No. Patient's initial sepsis screen is negative. Risk Assessment: Do you want to hurt yourself or someone else? Patient reports no desire to harm self or others. Onset of symptoms is unknown. 11:06 Method Of Arrival: Ambulatory ap3 11:06 Acuity: TAMEKA 3 ap3 11:11 Chief complaint: Patient states: also reports abdominal hives. ap3 Triage Assessment: 11:08 General: Appears uncomfortable, Behavior is calm, cooperative, appropriate for age. ap3 Pain: Complains of pain in low back area Pain currently is 10 out of 10 on a pain scale. Pain began gradually. Neuro: Level of Consciousness is awake, alert, obeys commands, Oriented to person, place, time, situation, Appropriate for age. Cardiovascular: Patient's skin is warm and dry. Respiratory: Airway is patent Respiratory effort is even, unlabored, Respiratory pattern is regular, symmetrical. GI: Reports constipation. Musculoskeletal: Reports pain in low back area. 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 - Infectious Disease History:: Denies. - Social history:: Smoking status: Reported history of juuling and/or vaping. - Family history:: not pertinent. - Hospitalizations: : No recent hospitalization is reported. Screenin:09 Abuse screen: Denies threats or abuse. Nutritional screening: No deficits noted. ap3 Tuberculosis screening: No symptoms or risk factors identified. 18:[address] [facility] ED Fall Risk Assessment (Adult) History of falling in the last 3 months, tl4 including since admission No falls in past 3 months (0 pts) Confusion or Disorientation No (0 pts) Intoxicated or Sedated No (0 pts) Impaired Gait No (0 pts) Mobility Assist Device Used No (0 pt) Altered Elimination No (0 pt) Score/Fall Risk Level 0 - 2 = Low Risk Oriented to surroundings, Maintained a safe environment, Educated pt \\T\\ family on fall prevention, incl call for assistance when getting out of bed, Assessed \\T\\ reinforced patient's understanding of fall precautions. Assessment: 13:02 General: Appears uncomfortable, Behavior is calm, cooperative. Pain: Complains of pain tl4 in buttocks and low back area. Neuro: Level of Consciousness is awake, alert, obeys commands, Oriented to person, place, time, situation, Moves all extremities. Full function Gait is steady, Speech is normal, Facial symmetry appears normal. Cardiovascular: Capillary refill < 3 seconds Patient's skin is warm and dry. Respiratory: Airway is patent Respiratory effort is even, unlabored, Respiratory pattern is regular, symmetrical. GI: No signs and/or symptoms were reported involving the gastrointestinal system. : Reports inability to void. EENT: No signs and/or symptoms were reported regarding the EENT system. Derm: No signs and/or symptoms reported regarding the dermatologic system. Musculoskeletal: Reports pain in buttocks and low back area. 14:20 Reassessment: Patient and/or family updated on plan of care and expected duration. Pain tl4 level reassessed. Patient is alert, oriented x 3, equal unlabored respirations, skin warm/dry/pink. 15:33 Reassessment: Patient and/or family updated on plan of care and expected duration. Pain tl4 level reassessed. Patient is alert, oriented x 3, equal unlabored respirations, skin warm/dry/pink. Vital Signs: 11:06 BP 170 / 82; Pulse 82; Resp 16; Temp 98.2; Pulse Ox 100% ; Weight 97.52 kg; Height 5 ap3 ft. 2 in. ; Pain 10/10; 14:00 BP 129 / 85; Pulse 64; Resp 18; Pulse Ox 98% on R/A; tl4 15:00 BP 137 / 84; Pulse 64; Resp 16; Pulse Ox 98% on R/A; tl4 16:00 BP 144 / 99; Pulse 64; Resp 16; Pulse Ox 97% on R/A; tl4 17:00 BP 129 / 88; Pulse 56; Resp 15; Pulse Ox 97% on R/A; tl4 17:58 BP 121 / 78; Pulse 56; Resp 16; Temp 98.3(O); Pulse Ox 99% on R/A; tl4 11:06 Body Mass Index 39.32 (97.52 kg, 157.48 cm) ap3 11:06 Pain Scale: Adult ap3 ED Course: 10:50 Patient arrived in ED. im 11:03 Yandel Roberson MD is Attending Physician. rn 11:08 Triage completed. ap3 11:09 Arm band placed on left wrist. ap3 12:49 CBC with Diff Sent. tl4 12:49 CMP Sent. tl4 12:49 Lipase Sent. tl4 13:06 Initial lab(s) drawn, by me, sent to lab. Inserted saline lock: 22 gauge in right ap3 antecubital area, using aseptic technique. Blood collected. 13:16 CBC with Diff Sent. tl4 13:16 CMP Sent. tl4 13:16 Lipase Sent. tl4 14:00 Test, Urine Sent. tl4 14:00 Urinalysis w/ reflexes Sent. tl4 14:36 CT Abd/Pelvis - IV Contrast Only In Process Unspecified. EDMS 17:58 No provider procedures requiring assistance completed. IV discontinued, intact, tl4 bleeding controlled, No redness/swelling at site. Pressure dressing applied. 18:02 Patient has correct armband on for positive identification. Placed in gown. Bed in low tl4 position. Call light in reach. Side rails up X 1. Provided Education on: ed process, call chisholm. Client placed on continuous cardiac and pulse oximetry monitoring. NIBP monitoring applied. bus driver/monitor on. Door closed. Noise minimized. Lights dimmed. Moved to private room. Warm blanket given. Pillow given. Administered Medications: 13:08 Drug: NS 0.9% IV 1000 ml IV at 1 bolus Per protocol; 1000 mL bolus Route: IV; Rate: 1 tl4 bolus; Site: right antecubital; Delivery: Primary tubing; 18:04 Follow up: Response: No adverse reaction; IV Status: Completed infusion; IV Intake: tl4 1000ml 16:23 Drug: morphine IVP or IV 4 mg IVP once over 4 mins Route: IVP; Infused Over: 4 mins; ap3 Site: right antecubital; 16:23 Follow up: Response: Adverse reaction, Physician notified ap3 16:23 Drug: Ondansetron IVP 4 mg IVP once; over 2 minutes Route: IVP; Site: right antecubital;ap3 16:49 Follow up: Response: No adverse reaction; Nausea is decreased ap3 16:24 Drug: diphenhydrAMINE IVP 25 mg IVP once Route: IVP; Site: right antecubital; ap3 16:49 Follow up: Response: No adverse reaction; Other; adverse reaction to previous ap3 medication has improved Medication: 18:02 VIS not applicable for this client. tl4 Intake: 18:04 IV: 1000ml; Total: 1000ml. tl4 Outcome: 16:43 Discharge ordered by . rn 18:01 Discharged to home ambulatory, ap3 18:01 Condition: good 18:01 Discharge instructions given to patient, Instructed on discharge instructions, follow up and referral plans. medication usage, Demonstrated understanding of instructions, follow-up care, medications, Prescriptions given X 3, 18:03 Patient left the ED. tl4 Signatures: Dispatcher [employer] EDMS Yandel Roberson MD MD rn Prokisch, Amanda RN RN ap3 Maryuri Almendarez Toni, RN RN tl4 Corrections: (The following items were deleted from the chart) 11:11 11:06 Acuity: TAMEKA 4 ap3 ap3 16:50 11:08 Allergies: No Known Allergies; ap3 ap3
--- NOTE | 2023-12-13 16:44 | EDPHYS ---
Physician Documentation [facility] Name: Isabela Love Age: 43 yrs Sex: Female : 1980 Arrival Date: 12/13/2023 Time: 10:48 Bed 13 Private MD: ED Physician Yandel Roberson HPI: 12/12 12:37 This 43 yrs old Female presents to ER via Ambulatory with complaints of Low Back Pain. rn 12:37 The patient presents with pain that is acute, with no known mechanism of injury. The rn symptoms are located in the low back. The pain radiates to the buttocks. Onset: The symptoms/episode began/occurred 1 week(s) ago. Modifying factors: The patient symptoms are alleviated by nothing, the patient symptoms are aggravated by any movement. Severity of symptoms: At their worst the symptoms were moderate, in the emergency department the symptoms are unchanged. The patient has not experienced similar symptoms in the past. Patient denies any injury. Having left lower back pain that radiates into top of butt cheek. Patient reports pressure sensation. Denies any perianal or rectal pain. Does report that she is constipated, has taken some laxatives and has not had a bowel movement but still feels pressure in the left butt cheek so came in for evaluation. Denies any focal trauma to the back. No weakness of legs. . 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 - Infectious Disease History:: Denies. - Social history:: Smoking status: Reported history of juuling and/or vaping. - Family history:: not pertinent. - Hospitalizations: : No recent hospitalization is reported. ROS: 12:37 Constitutional: Negative for fever, chills, and weight loss, Neck: Negative for injury, rn pain, and swelling, Cardiovascular: Negative for chest pain, palpitations, and edema, Respiratory: Negative for shortness of breath, cough, wheezing, and pleuritic chest pain, Abdomen/GI: Negative for abdominal pain, nausea, vomiting, diarrhea, and constipation, Back: Positive for lower back pain : Negative for injury, bleeding, discharge, and swelling, MS/Extremity: Negative for injury and deformity, Skin: Negative for injury, rash, and discoloration, Neuro: Negative for headache, weakness, numbness, tingling, and seizure, Exam: 12:37 Constitutional: This is a well developed, well nourished patient who is awake, alert, rn and in no acute distress. Cardiovascular: Regular rate and rhythm. No pulse deficits. Respiratory: No increased work of breathing, no retractions or nasal flaring. Abdomen/GI: Soft, non-tender, perirectal exam shows scar tissue left perirectal region but no evidence of perianal abscess or thrombosed hemorrhoid Back: No spinal tenderness. MS/ Extremity: Pulses equal, no cyanosis. Neuro: Awake and alert, GCS 15 Vital Signs: 11:06 BP 170 / 82; Pulse 82; Resp 16; Temp 98.2; Pulse Ox 100% ; Weight 97.52 kg; Height 5 ap3 ft. 2 in. ; Pain 10/10; 14:00 BP 129 / 85; Pulse 64; Resp 18; Pulse Ox 98% on R/A; tl4 15:00 BP 137 / 84; Pulse 64; Resp 16; Pulse Ox 98% on R/A; tl4 16:00 BP 144 / 99; Pulse 64; Resp 16; Pulse Ox 97% on R/A; tl4 17:00 BP 129 / 88; Pulse 56; Resp 15; Pulse Ox 97% on R/A; tl4 17:58 BP 121 / 78; Pulse 56; Resp 16; Temp 98.3(O); Pulse Ox 99% on R/A; tl4 11:06 Body Mass Index 39.32 (97.52 kg, 157.48 cm) ap3 11:06 Pain Scale: Adult ap3 MDM: 11:03 Patient medically screened. rn 16:42 Differential diagnosis: arthritis, strain, sciatica, contusion, Herniated disc UTI, rn Fecal impaction, constipation, referred pain. Data reviewed: vital signs, nurses notes, lab test result(s), radiologic studies, CT scan, and as a result, I will discharge patient. Counseling: I had a detailed discussion with the patient and/or guardian regarding the historical points, exam findings, and any diagnostic results supporting the discharge/admit diagnosis, lab results, radiology results, the need for outpatient follow up, to return to the emergency department if symptoms worsen or persist or if there are any questions or concerns that arise at home. 16:43 Special discussion: I discussed with the patient/guardian in detail that at this point rn there is no indication for admission to the hospital. It is understood, however, that if the symptoms persist or worsen the patient needs to return immediately for re-evaluation. ED course: No acute findings on imaging or workup. Will discharge home with pain medication, muscle relaxer and return precautions.. 12/12 11:14 Order name: CBC with Diff; Complete Time: 14:05 rn 12/12 11:14 Order name: CMP; Complete Time: 14: rn 12/12 11:14 Order name: Lipase; Complete Time: 14:05 rn 12/12 11:14 Order name: Test, Urine; Complete Time: 14:29 rn 12/12 11:14 Order name: Urinalysis w/ reflexes; Complete Time: 14:29 rn 12/12 11:14 Order name: CT Abd/Pelvis - IV Contrast Only; Complete Time: 15:07 rn 12/12 11:14 Order name: IV Saline Lock; Complete Time: 12:48 rn 12/12 11:14 Order name: Labs collected and sent; Complete Time: 12:48 rn 12/12 12:58 Order name: Labs - recollect needed: lavender and green; Complete Time: 13:07 ap3 Administered Medications: 13:08 Drug: NS 0.9% IV 1000 ml IV at 1 bolus Per protocol; 1000 mL bolus Route: IV; Rate: 1 tl4 bolus; Site: right antecubital; Delivery: Primary tubing; 18:04 Follow up: Response: No adverse reaction; IV Status: Completed infusion; IV Intake: tl4 1000ml 16:23 Drug: morphine IVP or IV 4 mg IVP once over 4 mins Route: IVP; Infused Over: 4 mins; ap3 Site: right antecubital; 16:23 Follow up: Response: Adverse reaction, Physician notified ap3 16:23 Drug: Ondansetron IVP 4 mg IVP once; over 2 minutes Route: IVP; Site: right antecubital;ap3 16:49 Follow up: Response: No adverse reaction; Nausea is decreased ap3 16:24 Drug: diphenhydrAMINE IVP 25 mg IVP once Route: IVP; Site: right antecubital; ap3 16:49 Follow up: Response: No adverse reaction; Other; adverse reaction to previous ap3 medication has improved Disposition Summary: 12/13/23 16:43 Discharge Ordered Notes: Location: Home rn Problem: new rn Symptoms: have improved rn Condition: Stable rn Diagnosis - Low back pain rn Followup: rn - With: Private Physician - When: As needed - Reason: Recheck today's complaints, Re-evaluation by your physician Discharge Instructions: - Discharge Summary Sheet rn - Acute Back Pain, Adult rn - Pain Without a Known Cause rn Forms: - Medication Reconciliation Form rn - Antibiotic risk management intern - Prescription Opioid Use rn - Patient Portal Instructions rn - Leadership Thank You Letter rn Prescriptions: - Clindamycin HCl 300 mg Oral Capsule - take 1 capsule ORAL route every 6 hours for 10 days; 40 capsule; Refills: 0, rn Product Selection Permitted - Cyclobenzaprine 10 mg Oral Tablet - take 1 tablet ORAL route every 8 hours As needed; 30 tablet; Refills: 0, rn Product Selection Permitted - Tramadol 50 mg Oral Tablet - take 1 tablet ORAL route every 8 hours as needed; 12 tablet; Refills: 0, rn Product Selection Permitted Signatures: Dispatcher [employer] EDCT Yandel Roberson MD MD rn Prokisch, Amanda RN RN ap3 Bradley Cam RN RN tl4 Corrections: (The following items were deleted from the chart) 11:15 11:15 Abdomen Pelvis W [id number] ordered. [facility] EDCT 14:46 12:37 Constitutional: This is a well developed, well nourished patient who is awake, rn alert, and in no acute distress. Cardiovascular: Regular rate and rhythm. No pulse deficits. Respiratory: No increased work of breathing, no retractions or nasal flaring. Abdomen/GI: Soft, non-tender Back: No spinal tenderness. MS/ Extremity: Pulses equal, no cyanosis. Neuro: Awake and alert, GCS 15 rn 16:43 12:37 Patient denies any injury. Having left lower back pain that radiates into top of rn butt cheek. Patient reports pressure sensation. Denies any perianal or rectal pain. Does report that she is constipated, has taken some laxatives and has not had a bowel movement but still feels pressure in the left butt cheek so came in for evaluation. Denies any focal trauma to the back. No weakness of legs. . rn 16:50 11:08 Allergies: No Known Allergies; ap3 ap3
[2023-12-13 18:21] VITALS: BP 121/78; TEMP 98.3; O2SAT 99
== END 2023-12-13 18:03 | disposition home or self-care (01) ==
LOC: ER 10:48
DX: M54.50 Low back pain, unspecified (principal)
CPT/HCPCS: 36415; 74177; 80053; 81001; 81025; 83690; 85025; 96361; 96374; 96375; 99285; J1200; J2405; J7030; Q9967